=== PATIENT | male | born 1955 | race Caucasian/White ===

== ENCOUNTER 2017-07-21 11:47 | Emergency (ER) | payer OTHER ==
--- NOTE | 2017-07-21 12:20 | ER Document Report ---
ED Medical Screen (RME) - General Chief Complaint: Abdominal Swelling Stated Complaint: ABDOMINAL SWELLING,DIFFICULTY BREATHING Time Seen by Provider: 07/21/17 12:14 Notes: 62-year-old male patient with cirrhosis and ascites. Gets regular paracentesis. He came here from [place] to visit on 07/14/2017. His last paracentesis was 07/04/2017 when 10 L of fluid was removed. He reports the swelling is about the same as it was prior to his last paracentesis and he is becoming somewhat short of breath due to the swelling. He does have edema to his legs and ankles which she states is a little worse than usual. I have greeted and performed a rapid initial assessment of this patient. A comprehensive ED assessment and evaluation of the patient, analysis of test results and completion of the medical decision making process will be conducted by additional ED providers. TRAVEL OUTSIDE OF THE [place] IN LAST 30 DAYS: No - Related Data Allergies/Adverse Reactions: No Known Allergies Allergy (Unverified 07/21/17 11:49) Home Medications: Current Home Medications Furosemide [Furosemide] 1 tab PO DAILY 07/21/17 [History] Glimepiride [Glimepiride] 1 tab PO QHS 07/21/17 [History] Insulin Detemir [Levemir Flextouch] 16 units SQ BID 07/21/17 [History] Lactulose [Lactulose] 15 ml PO DAILY 07/21/17 [History] Omeprazole 1 tab PO DAILY 07/21/17 [History] Spironolactone [Spironolactone] 3 tab PO DAILY 07/21/17 [History] Physical Exam - Vital signs Vitals: Temp Pulse Resp BP Pulse Ox 97.6 F 77 16 122/72 100 07/21/17 11:55 07/21/17 11:55 07/21/17 11:55 07/21/17 11:55 07/21/17 11:55 Course - Vital Signs Vital signs: Temp Pulse Resp BP Pulse Ox 97.6 F 77 16 122/72 100 07/21/17 11:55 07/21/17 11:55 07/21/17 11:55 07/21/17 11:55 07/21/17 11:55
[2017-07-21 13:06] LABS: PROTHROMBIN TIME 14.9 SEC (11.4-15.4)
[2017-07-21 13:09] LABS: ABSOLUTE EOSINOPHILS # (AUTO) 0.1 10^3/uL (0.0-0.6); ABSOLUTE LYMPHOCYTES (AUTO) 0.5 10^3/uL (0.5-4.7); ABSOLUTE MONOCYTES (AUTO) 0.8 10^3/uL (0.1-1.4); ABSOLUTE NEUT (AUTO) 5.7 10^3/uL (1.7-8.2); BASOPHILS % (AUTO) 0.7 % (0-2); EOSINOPHILS % (AUTO) 1.3 % (0-6); HEMATOCRIT 46.2 % (37.9-51.0); HEMOGLOBIN 15.3 g/dL (13.5-17.0); LYMPHOCYTES % (AUTO) 7.4 % (13-45); MEAN CORPUSCULAR HEMOGLOBIN 35.1 pg (27.0-33.4); MEAN CORPUSCULAR HGB CONC 33.2 g/dL (32.0-36.0); MEAN CORPUSCULAR VOLUME 106 fl (80-97); MONOCYTES % (AUTO) 11.1 % (3-13); PLATELET COUNT 155 10^3/uL (150-450); RED BLOOD COUNT 4.37 10^6/uL (4.35-5.55); SEGMENTED NEUTROPHILS % (AUTO) 79.5 % (42-78); TOTAL CELLS COUNTED % (AUTO) 100 %; WHITE BLOOD COUNT 7.2 10^3/uL (4.0-10.5)
[2017-07-21 13:26] LABS: ALANINE AMINOTRANSFERASE 117 U/L (21-72); ALBUMIN 3.4 g/dL (3.5-5.0); ALKALINE PHOSPHATASE 1199 U/L (38-126); ANION GAP 8 (5-19); ASPARTATE AMINO TRANSFERASE 114 U/L (17-59); BILIRUBIN,DIRECT 1.6 mg/dL (0.0-0.4); BILIRUBIN,TOTAL 2.3 mg/dL (0.2-1.3); BLOOD UREA NITROGEN 54 mg/dL (7-20); CALCIUM 9.7 mg/dL (8.4-10.2); CARBON DIOXIDE 22 mmol/L (22-30); CHLORIDE 108 mmol/L (98-107); GLUCOSE 89 mg/dL (75-110); MAGNESIUM 1.9 mg/dL (1.6-2.3); POTASSIUM 5.9 mmol/L (3.6-5.0); TOTAL PROTEIN 7.1 g/dL (6.3-8.2)
--- NOTE | 2017-07-21 14:42 | ER Document Report ---
ED GI/ - General Chief Complaint: Abdominal Swelling Stated Complaint: ABDOMINAL SWELLING,DIFFICULTY BREATHING Time Seen by Provider: 07/21/17 12:14 Notes: Patient is a 62-year-old male who presents emergency department complaining of shortness of breath and abdominal swelling. 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 Patient states that his last paracentesis was July 04 at a facility in [place] while he was visiting his daughter. He states that over the past 2-3 days his shortness of breath, dyspnea on exertion his orthopnea is gotten worse. Otherwise denies any fevers or chills, nausea, vomiting or any pain. Past medical history significant for insulin-dependent diabetes. He is on spironolactone, furosemide, omeprazole. Primary care is in [facility] TRAVEL OUTSIDE OF THE [place] IN LAST 30 DAYS: No - Related Data Allergies/Adverse Reactions: No Known Allergies Allergy (Unverified 07/21/17 11:49) Home Medications: Current Home Medications Furosemide [Furosemide] 20 mg PO DAILY 07/21/17 [History] Glimepiride [Glimepiride] 4 mg PO QHS 07/21/17 [History] Insulin Detemir [Levemir Flextouch] 16 units SQ BID 07/21/17 [History] Spironolactone [Spironolactone] 75 mg PO DAILY 07/21/17 [History] Past Medical History - Social History Smoking Status: Never Smoker Frequency of alcohol use: None Drug Abuse: None Family History: Reviewed & Not Pertinent Patient has suicidal ideation: No Patient has homicidal ideation: No Renal/ Medical History: Denies: Hx Peritoneal Dialysis Review of Systems - Review of Systems Constitutional: No symptoms reported Cardiovascular: No symptoms reported Respiratory: See HPI Gastrointestinal: See HPI Neurological/Psychological: No symptoms reported -: Yes All other systems reviewed and negative Physical Exam - Vital signs Vitals: Temp Pulse Resp BP Pulse Ox 97.6 F 77 16 122/72 100 07/21/17 11:55 07/21/17 11:55 07/21/17 11:55 07/21/17 11:55 07/21/17 11:55 - Notes Notes: PHYSICAL EXAM GENERAL: Alert, interacts well. LUNGS: Clear to auscultation bilaterally, no wheezes, rales, or rhonchi. No respiratory distress. HEART: Regular rate and rhythm. No murmurs, gallops, or rubs. ABDOMEN: Distended, nontender with positive fluid wave. No guarding, rebound, or rigidity.. Bowel sounds present in all 4 quadrants. EXTREMITIES: Moves all 4 extremities spontaneously. No edema, radial and dorsalis pedis pulses 2/4 bilaterally. No cyanosis. NEUROLOGICAL: Alert and oriented x4. Normal speech. PSYCH: Normal affect, normal mood. SKIN: Warm, dry, normal turgor. No rashes or lesions noted. Course - Re-evaluation Re-evalutation: 07/21/17 19:29 Patient is a 62-year-old male is hemodynamically stable, no acute distress afebrile. CBC stable without evidence of leukocytosis or anemia. Chemistry with evidence of acute dehydration based on elevated renal function. Obtained labs from facility [facility] in [place] where patient had a BUN of 49 and a creatinine of 1.6. Based on this it is evident that his ascites is causing his renal function to increase. Patient is still making urine without any changes. Recommended holding his spironolactone and Lasix tomorrow for 1 dose. Patient did undergo paracentesis with interventional radiology for 8.4 L. Patient also received albumin given he had more than 5 L removed. Vital signs remained stable and patient feeling well. Will discharge home with instruction to return to [place] and follow-up with his primary liver specialist discussed strict return precautions. Patient is stable for discharge home. - Vital Signs Vital signs: Temp Pulse Resp BP Pulse Ox 97.8 F 73 18 114/66 100 07/21/17 20:39 07/21/17 20:39 07/21/17 20:39 07/21/17 20:39 07/21/17 20:39 - Laboratory Result Diagrams: 07/21/17 12:26 07/21/17 12:26 Laboratory results interpreted by me: 07/21/17 07/21/17 12:26 12:26 MCV 106 H MCH 35.1 H RDW 17.0 H Seg Neutrophils % 79.5 H Lymphocytes % 7.4 L Potassium 5.9 H Chloride 108 H BUN 54 H Creatinine 1.85 H Est GFR ( Amer) 45 L Est GFR (Non-Af Amer) 37 L Total Bilirubin 2.3 H Direct Bilirubin 1.6 H AST 114 H ALT 117 H Alkaline Phosphatase 1199 H Albumin 3.4 L Discharge - Discharge Clinical Impression: Ascites Qualifiers: Ascites type: other type Qualified Code(s): R18.8 - Other ascites Condition: Good Disposition: HOME, SELF-CARE Instructions: Cirrhosis ([facility]) Additional Instructions: You underwent paracentesis today and had 8.4 L removed of your ascites. Based on your lab work done today please hold your spironolactone and furosemide for 1 dose tomorrow on July 22. Please make an effort to return home to follow- up with your liver specialist given that you have had 2 paracentesis in the past 2 weeks. Please return to the emergency department with any signs of fever , chills, lethargy weakness, shortness of breath or any other symptoms that are worrisome to you.
--- NOTE | 2017-07-21 14:48 | RADIOLOGY REPORT (SQ) ---
EXAM DESCRIPTION: U/S ABDOMEN LIMITED W/O DOP COMPLETED DATE/TIME: 07/21/2017 2:03 pm REASON FOR STUDY: ascites with SOB COMPARISON: None. TECHNIQUE: Limited Static and real time crum scale imaging performed of the 4 abdominal quadrants an d the midline. LIMITATIONS: None. FINDINGS: ASCITES: Fluid identified in all 4 quadrants OTHER: No other significant finding. IMPRESSION: MODERATE ASCITES. TECHNICAL DOCUMENTATION: JOB ID: [id number] [employer]- All Rights Reserved
[2017-07-21] MEDS ORDERED: LIDOCAINE 1% INJ-PF (10 MG/ML) 30 ML SDV ONE (16:02)
--- NOTE | 2017-07-21 18:14 | RADIOLOGY REPORT (SQ) ---
EXAM DESCRIPTION: U/S ABD PARACENTESIS COMPLETED DATE/TIME: 07/21/2017 6:06 pm REASON FOR STUDY: ascites with SOB COMPARISON: None. LIMITATIONS: None. PROCEDURE: Procedure, risks, benefit, and alternative explained to patient who then gave written con sent. The left lower abdominal wall marked using ultrasound guidance. A time-out was called for cor rect marking verification. Abdomen prepped and draped using sterile technique. Local anesthesia achi eved using 5 ml of 1% lidocaine injection. A 5fr needle/cath set was introduced into the peritoneal cavity. Fluid was drained. The catheter was removed and entry site was covered with sterile bandage . No immediate complications noted. Images acquired during the procedure were stored on PACS. FINDINGS: ENTRY SITE: Left lower quadrant FLUID VOLUME: 8,400 FLUID ANALYSIS: Yellow straw colored fluid OTHER: Therapeutic only. IMPRESSION: SUCCESSFUL ULTRASOUND GUIDED PARACENTESIS. COMMENT: Patient medication list reviewed:Yes- Quality ID# [id number]:Eligible professional attests to docu menting in the medical record they obtained, updated, or reviewed the patient's current medications. TECHNICAL DOCUMENTATION: JOB ID: [id number] [employer]- All Rights Reserved
[2017-07-21] MEDS: ALBUMIN HUMAN 50 ML IV SCH ×3 (18:23→19:00)
[2017-07-21 20:39] VITALS: BP 114/66
== END 2017-07-21 20:39 | disposition home or self-care (01) ==
LOC: ER 11:47
DX: R18.8 Other ascites (principal); R06.02 Shortness of breath; Z79.4 Long term (current) use of insulin; Z79.899 Other long term (current) drug therapy
CPT/HCPCS: 99284; 96365; 96366; 36415; 83735; 85025; 85610; 80053; 76705; 49083; P9047; J3490